=== PATIENT | female | born 1990 | race Two or more races ===

== ENCOUNTER 2018-11-06 18:02 | Inpatient (IN) | payer SELFPAY ==
[~2018-11-06] VITALS: Ht 165.1 cm; Wt 70.6 kg
[2018-11-06] VITALS (7 sets, daily range): BP systolic 108–109; BP diastolic 58–62
[2018-11-06 18:48] LABS: Basophils # (auto) 0 uL; Basophils % (auto) 0.7 % (0.0-2.0); Eosinophils # (auto) 0.1 uL; Hematocrit 19.3 % (36.0-46.0); Lymphocytes # (auto) 1.9 uL; Lymphocytes % (auto) 35.1 % (10.0-50.0); Mean Corpuscular Hemoglobin 20.6 pg (28.0-32.0); Mean Corpuscular Hgb Conc. 29.5 g/dL (32.0-36.0); Mean Corpuscular Volume 69.9 fL (80.0-100.0); Monocytes # (auto) 0.6 uL; Monocytes % (auto) 10.8 % (0.0-12.0); Neutrophils # (auto) 2.8 uL; Neutrophils % (auto) 52.4 % (37.0-80.0); Nucleated Red Blood Cells % 0.1 %; Platelet Count (auto) 376 10^3/uL (140-450); Red Blood Cells 2.76 10^6/uL (4.0-5.20); White Blood Cell 5.4 10^3/uL (4.4-10.8)
[2018-11-06 18:49] LABS: Red Cell Distribution Width 21.4 % (11.8-14.3)
[2018-11-06 18:56] LABS: Hemoglobin 5.7 g/dL (12.2-16.2)
[2018-11-06 19:04] LABS: Albumin 3.9 g/dL (3.4-5.0); Calcium 8.4 mg/dL (8.5-10.1); Potassium 3.6 mmol/L (3.5-5.1)
[2018-11-06 19:17] LABS: Bilirubin, Total 0.3 mg/dL (0.2-1.0); Total Protein 7.6 g/dL (6.4-8.2)
[2018-11-06] MEDS ORDERED: ONDANSETRON HCL 4 MG/2 ML VIAL IV PRN (19:45)
[2018-11-06] MEDS ORDERED: MORPHINE SULF INJ 2 MG/ML SYRINGE 1ML IV PRN (19:45)
[2018-11-06] MEDS ORDERED: ACETAMINOPHEN 500 MG TAB PO PRN (19:45)
[2018-11-06] MEDS ORDERED: HYDROcodone-ACET 5/325MG TAB PO PRN (19:45)
[2018-11-06] MEDS ORDERED: SODIUM CHLORIDE 0.9% 500 ML IV ONE (20:00)
[2018-11-06 20:06] LABS: % Iron Saturation 1.6 % (15-50)
--- NOTE | 2018-11-06 20:55 | NUR ---
MS admit from ER NIEVES WILLIAM admitted to tele/MS after SBAR received. Patient oriented to Elmira Rene, primary RN, unit, room, bed, and unit policies regarding patient care and visiting hours. Patient weighed by bedscale and encouraged to call if they need something. All questions and concerns addressed, patient verbalized understanding.
[2018-11-06 21:24] LABS: Urine Bacteria NONE SEEN /hpf (None Seen); Urine Blood 1+ /uL (Negative); Urine WBC <1 /hpf (0 - 5)
[2018-11-06] MEDS: SODIUM CHLORIDE 0.9% 1,000 ML IV SCH (22:03)
--- NOTE | 2018-11-06 22:35 | NUR ---
BLOOD TRANSFUSION BEGAN AT 2215 PER MD ORDERS. PATIENT IS TOLERATING WELL. VS WNL. NO S/SX OF ADVERSE REACTION. EDUCATED PATIENT ON S/SX OF ADVERSE REACTION; PATIENT DENIES ANY SYMPTOMS. PATIENT SITTING UP IN BED WATCHING TELEVISION. WILL CONTINUE TO MONITOR. RN AT BEDSIDE.
[2018-11-07] VITALS (7 sets, daily range): BP systolic 102–108; BP diastolic 56–65
--- NOTE | 2018-11-07 00:20 | NUR ---
1 UNIT OF PRBC TRANSFUSION ENDED AT 0016 PATIENT DID NOT HAVE ADVERSE REACTION TO BLOOD TRANSFUSION. PATIENT TOLERATED WELL. VS CHARTED IN TRANSFUSION TAB. WILL ADMINISTER NEXT UNIT OF PRBC ORDERED.
--- NOTE | 2018-11-07 01:07 | NUR ---
2ND UNIT OF PRBC TRANSFUSION BEGAN. PATIENT SITTING IN BED. NO S/SX OF DISTRESS. NO S/SX OF ADVERSE REACTION. EDUCATED PATIENT REGARDS TO ADVERSE BLOOD TRANSFUSION REACTIONS; PATIENT VERBALIZES UNDERSTANDING. PATIENT COMFORTABLE IN BED. VS DOCUMENTED IN TRANSFUSIONS TAB.
[2018-11-07] MEDS: SODIUM CHLORIDE 0.9% 1,000 ML IV SCH (05:59)
[2018-11-07 07:07] LABS: Basophils # (auto) 0 uL; Hemoglobin 7.9 g/dL (12.2-16.2); Nucleated Red Blood Cells % 0.1 %; White Blood Cell 4.6 10^3/uL (4.4-10.8)
[2018-11-07 07:13] LABS: Basophils % (auto) 0.8 % (0.0-2.0); Eosinophils # (auto) 0 uL; Hematocrit 25.5 % (36.0-46.0); Lymphocytes # (auto) 1.3 uL; Lymphocytes % (auto) 29.3 % (10.0-50.0); Mean Corpuscular Hemoglobin 23.8 pg (28.0-32.0); Mean Corpuscular Hgb Conc. 31.1 g/dL (32.0-36.0); Mean Corpuscular Volume 76.4 fL (80.0-100.0); Monocytes # (auto) 0.4 uL; Monocytes % (auto) 9.6 % (0.0-12.0); Neutrophils # (auto) 2.7 uL; Neutrophils % (auto) 59.3 % (37.0-80.0); Platelet Count (auto) 286 10^3/uL (140-450); Red Blood Cells 3.34 10^6/uL (4.0-5.20)
[2018-11-07 07:30] LABS: Potassium 3.8 mmol/L (3.5-5.1)
[2018-11-07 07:35] LABS: BUN/Creatinine Ratio 15.4; Calcium 8.4 mg/dL (8.5-10.1)
[2018-11-07 07:44] LABS: Red Cell Distribution Width 23.2 % (11.8-14.3)
--- NOTE | 2018-11-07 13:12 | NUR ---
ERIC DENT AT BEDSIDE DISCUSSING POC.
== END 2018-11-07 15:50 | disposition home or self-care (01) | DRG 761 ==
LOC: ER 18:10 → OVERFLOW 19:37 → WEST WING 20:54
PROVIDERS: ADMIT Nurse Practitioner Acute Care; ATTEND Family Medicine
PROC: 30233N1 Transfusion of Nonautologous Red Blood Cells into Peripheral Vein, Percutaneous Approach (ICD-10-PCS; principal; 2018-11-06)
DX: D25.0 Submucous leiomyoma of uterus (principal); N93.9 Abnormal uterine and vaginal bleeding, unspecified; E83.51 Hypocalcemia; N92.0 Excessive and frequent menstruation with regular cycle; D50.0 Iron deficiency anemia secondary to blood loss (chronic)
CPT/HCPCS: 36415; 36430; 76830; 76856; 80048; 80053; 81001; 83540; 83550; 84702; 85025; 86850; 86900; 86901; 86920; 94761; 96360; 96361; G0378